=== PATIENT | male | born 1995 | race African-American/Black ===

== ENCOUNTER 2017-08-06 13:19 | Emergency (ER) | payer OTHER ==
[~2017-08-06] VITALS: Ht 167.6 cm; Wt 72.6 kg
[~2017-08-06 13:19] MED LIST: VICODIN 5/1 TAB 5/50 PO
== END 2017-08-06 14:11 | disposition home or self-care (01) ==
LOC: CED 13:19 → CFTX 13:19
DX: J03.90 Acute tonsillitis, unspecified (principal)
CPT/HCPCS: 87880; 96372; 99283; J0561